=== PATIENT | female | born 1935 | race Caucasian/White ===

== ENCOUNTER 2017-06-25 15:39 | Inpatient (IN) | payer OTHER ==
[~2017-06-25] VITALS: Ht 162.6 cm; Wt 57.7 kg
--- NOTE | ~2017-06-25 | HC ---
[facility] [place] [address] CONSULTATION Name: SARI VILLASEÑOR Room #: 215-P [facility] IN M.R.#: [id number] Admission: 06/25/17 Attend Phys: Ness Kim MD Discharge: 06/29/17 Date of : 39 Report #: [id number] THIS REPORT FOR: //name// CC: Ness Kim DATE OF SERVICE: 06/29/2017 HISTORY OF PRESENT ILLNESS: The patient is a 81-year-old white female admitted with increased shortness of breath and lowered herself to the floor. She does have a premorbid history of bronchogenic carcinoma, for which she has indicated that she does not want pulmonary or oncology input. She was diagnosed with a COPD exacerbation and pneumonia. She was placed on IV Solu-Medrol, treated with antibiotics. She has intermittent atrial fibrillation continues to be in sinus rhythm. We are seeing her in rehabilitation medicine consultation. 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 She has had lung cancer diagnosed previously. History of atrial fibrillation, intermittent. History of recurrent pneumonias. MEDICATIONS: Please see the above noted medications. ALLERGIES: No known drug allergies. SOCIAL HISTORY: She lives with her grandson in a house, she used a walker for short distances was on O2 of 3 liters. The grandson's girlfriend is there and it sounds like there are couple of young children there. There also was a granddaughter that helps out. Typically, the grandson will get close set up for the patient. HABITS: She continues to smoke 1 pack per day, has been smoking for 55 years. Denies alcohol use or drug use. REVIEW OF SYSTEMS: No current complaints of chest pain or abdominal discomfort. Denies discomfort arms and legs. No complaints of headache or nausea were voiced. ALLERGIES: No known drug allergies. PHYSICAL EXAMINATION: GENERAL: A 81-year-old white female in no obvious distress. VITAL SIGNS: Last recorded temperature is 97.6, pulse 85, respirations 18, blood pressure 128/67. The patient is alert, pleasant. HEENT: Appeared to be benign. NEUROLOGIC: Cranial nerves are grossly intact. Facies are symmetric. She is on 3 liters of nasal cannula. She has functional range of motion of both upper [facility] [address] [place] [address] CONSULTATION Name: SARI VILLASEÑOR Room #: 215-P [facility] IN ..#: [id number] Admission: 06/25/17 Attend Phys: Ness Kim MD Discharge: 06/29/17 Date of : 37 Report #: [id number] extremities. Strength is grade 3+/5. DTRs are trace to 1. Lower extremities, no focal calf swelling, trace distal lower extremity edema. Tone is intact. Strength is grade 3+/5. She is mod assist with sit to stand. Gait is mod assist 60 feet on the nasal prong O2. She is min assist for bed mobility, bathing was max assist, lower body dressing was dependent. ASSESSMENT: A 81-year-old white female with the following problem list: 1. Pulmonary rehabilitation. 2. Medical complexity with generalized debilitation. 3. Healthcare-associated pneumonia. 4. Chronic obstructive pulmonary disease exacerbation. 5. Bronchogenic carcinoma does not want pulmonary or oncology input. 6. Intermittent atrial fibrillation. 7. Tobacco abuse. PLAN: Will be assessing her tolerance for an acute in-hospital inpatient rehabilitation stay. We will be glad to follow along with you. The patient does indicate she is motivated and wants to return back home with her family. <ELECTRONICALLY SIGNED> By: Amadou Sadler MD 07/08/17 1643 1012 1237 Amadou Sadler MD /PMT
--- NOTE | ~2017-06-25 | H ---
[facility] [place] [address] HISTORY AND PHYSICAL Name: SARI VILLASEÑOR Room #: 215-P ADM IN M.R.#: [id number] Admission: 06/25/17 Attend Phys: Ness Kim MD Discharge: Date of : 37 Report #: [id number] THIS REPORT FOR: //name// CC: Ness Kim DATE OF SERVICE: 06/25/2017 HISTORY OF PRESENT ILLNESS: The patient is a 81-year-old female who was admitted to the hospital with increasing shortness of breath and a fall that was not complete. The patient indicated that she was trying to collect her dirty clothing in a plan for cleaning them, and she felt very weak, so she lowered herself to the floor so she will not hurt herself. She was unable to get up because of generalized weakness. For this reason, she was brought to the Emergency Room to be evaluated. PAST MEDICAL HISTORY: Significant for chronic obstructive pulmonary disease that is very advanced. The patient had lung cancer that was diagnosed in 02/2017. The patient had a history of atrial fibrillation that was intermittent, in addition to recurrent pneumonias. Unfortunately, the patient was seen by me in the hospital, mainly at [facility], and she was able to follow up with me once only in the clinic. She was supposed to follow up with Pulmonary and Oncology from [facility], but she has not been doing any of this, and in her way saying that she does not have a way of transportation. The patient was at skilled care facility at one point, but she said she does not like it. She is aware of her cancer, and she is aware that she is not doing any intervention for that. MEDICATIONS: The patient's medications before coming to the hospital were supposed to be Eliquis, Advair, Combivent and DuoNeb in addition to Cartia, but apparently, the patient was using only bronchodilators. ALLERGIES: No known drug allergies. SOCIAL HISTORY: The patient continues to smoke about 1 pack a day and has been smoking for 55 years. The patient denies any alcohol use or drug use. REVIEW OF SYSTEMS: The patient denies any headache, blurred vision, runny nose, sore throat, cough, chest pain, shortness of breath or palpitation. She denies any nausea or vomiting. She denies any pain in the arms or legs. PHYSICAL EXAMINATION: VITAL SIGNS: Showed a temperature of 98.1 and last temperature was 99.1, pulse 108, respirations 15, blood pressure 120/94. HEAD AND NECK: Unremarkable. NECK: Supple. LUNGS: Clear to auscultation with very poor respiratory effort. [address] [address] HISTORY AND PHYSICAL Name: SARI VILLASEÑOR Room #: 215-P ADM IN M.R.#: [id number] Admission: 06/25/17 Attend Phys: Ness Kim MD Discharge: Date of : 37 Report #: [id number] CARDIOVASCULAR: S1, S2 without any murmur or gallop. ABDOMEN: Benign. Bowel sounds were positive. EXTREMITIES: Without any edema. LABORATORY DATA: A 12-lead EKG showed ventricular paced complexes, bilateral atrial enlargement, right bundle branch block, ST elevation with consideration of possible anterolateral injury. The patient's chest x-ray showed right hilar prominence concerning for right hilar mass or adenopathy. There is hazy right perihilar infiltrate or edema in addition to COPD changes. CBC showed a white count of 12.2, hemoglobin 10.7, hematocrit 33.8, platelet count 350, neutrophils are 76%, with 2% bands. The patient's sodium is 144, potassium 3.7, chloride 103, bicarbonate 35, BUN 19, creatinine 0.8, glucose 129, calcium 9.7, troponin less than 0.04. Lactic acid was 2.1. D-dimer was 3.66. CT angiogram PE protocol showed large right hilar and right middle lobe lung mass consistent with bronchogenic carcinoma. The mass invades the right pulmonary vein and occludes the right middle lobe pulmonary artery and bronchus in addition to the presence of COPD and small pericardial effusion. Repeated lactic acid from today is 1.9. CBC from today showed a white count of 13.2, hemoglobin 9.4, hematocrit 29.8, platelet count 299. Sodium 144, potassium 3.9, chloride 106, bicarbonate 33, BUN 5, creatinine 0.6. ASSESSMENT AND PLAN: 1. Generalized weakness. 2. Chronic obstructive pulmonary disease with the possibility of chronic obstructive pulmonary disease exacerbation and pneumonia. 3. Bronchogenic carcinoma. 4. Intermittent atrial fibrillation. 5. Generalized debility. 6. Noncompliance. The patient was admitted to the hospital with the above-mentioned diagnoses. The patient will be continued on azithromycin and Rocephin in addition to gentle IV hydration. I will continue the Cardizem. I will start the patient on Lovenox for DVT prophylaxis. I counseled the patient extensively about her lung cancer. I do not think that the patient will do any type of workup or any type of chemotherapy, and even I feel that the patient's prognosis is very poor. Very likely, I will have the patient follow up with her oncologist after leaving the hospital. <ELECTRONICALLY SIGNED> By: Ness Kim MD 06/27/17 0723 0942 1107 MD denise Black
--- NOTE | ~2017-06-25 | EKG ---
[place] [address] [facility] [place] [address] ELECTROCARDIOGRAM REPORT Name: SARI VILLASEÑOR Room #: 215- ADM IN M.R.#: [id number] Admission: 06/25/17 Attend Phys: Ness Kim MD Discharge: Date of : 37 Report #: [id number] THIS REPORT FOR: //name// [facility] ED Test Date: 2017-06-25 Test Time: 15:44:25 Pat Name: SARI VILLASEÑOR Department: Room: [facility] Gender: F Filenet P8 Developer: MZOOK : 1935 Requested By: Kesha Clifton Order Number: [id number] MD: Howie Blanc Measurements Intervals [place] Rate: 121 P: 73 [place]: 157 QRS: 56 QRSD: 115 T: 16 QT: 334 QTc: 474 Interpretive Statements Sinus tachycardia Incomplete right bundle branch block Right atrial abnormality No previous ECG available for comparison Electronically Signed On 06-26-2017 15:52:06 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 06/26/17 1552 1544 1544 Howie Blanc MD, FACC /EPI
[2017-06-25 15:40] VITALS: BP 120/94
[2017-06-25 16:18] LABS: HEMATOCRIT 33.8 % (37.0-47.0); HEMOGLOBIN 10.7 gm/dL (12.0-15.0); MCH 27.8 pg (26.0-34.0); MCHC 31.6 g/dL (28.0-37.0); PLATELET COUNT 350 thou/uL (150-400); RBC 3.84 mil/uL (4.20-5.00); RDW 16.3 % (10.5-14.5); WBC 12.2 thou/uL (4.0-11.0)
[2017-06-25] MEDS ORDERED: ASPIRIN325 PO (16:30)
[2017-06-25] MEDS ORDERED: MUCINEX D TABL1 EAC1 PO (16:31)
[2017-06-25 16:32] LABS: ANION GAP 6 mmol/L (7-16); BUN 19 mg/dL (7-18); CALCIUM 9.7 mg/dL (8.5-10.1); CHLORIDE 103 mmol/L (98-107); CO2 35 mmol/L (21-32); CREATININE 0.8 mg/dL (0.6-1.0); GLUCOSE 129 mg/dL (74-106); POTASSIUM 3.7 mmol/L (3.5-5.1); SODIUM 144 mmol/L (136-145)
[2017-06-25 16:37] LABS: ABSOLUTE NEUTROPHILS 9.5 thou/uL (1.4-8.2)
[2017-06-25 16:40] LABS: TROPONIN-I < 0.04 ng/mL (<0.06)
[2017-06-25 17:04] VITALS: BP 90/52
[2017-06-25 18:53] VITALS: BP 104/62
[2017-06-25 19:22] VITALS: BP 116/72
[2017-06-25 23:15] VITALS: BP 133/67
[2017-06-26 03:27] VITALS: BP 128/62
[2017-06-26 04:11] LABS: HEMATOCRIT 29.8 % (37.0-47.0); HEMOGLOBIN 9.4 gm/dL (12.0-15.0); MCH 27.9 pg (26.0-34.0); MCHC 31.5 g/dL (28.0-37.0); MCV 88.6 fL (80.0-100.0); RBC 3.36 mil/uL (4.20-5.00); RDW 16.6 % (10.5-14.5); WBC 13.2 thou/uL (4.0-11.0)
[2017-06-26 04:30] LABS: CALCIUM 9.2 mg/dL (8.5-10.1); CREATININE 0.6 mg/dL (0.6-1.0); POTASSIUM 3.9 mmol/L (3.5-5.1)
[2017-06-26 07:20] VITALS: BP 120/60
[2017-06-26 11:41] VITALS: BP 109/56
[2017-06-26 15:37] VITALS: BP 104/58
[2017-06-26 19:50] VITALS: BP 106/59
[2017-06-27 04:09] VITALS: BP 106/51
[2017-06-27 04:22] LABS: HEMATOCRIT 25.9 % (37.0-47.0); HEMOGLOBIN 8.4 gm/dL (12.0-15.0); MCH 28.4 pg (26.0-34.0); MCHC 32.3 g/dL (28.0-37.0); PLATELET COUNT 232 thou/uL (150-400); RBC 2.95 mil/uL (4.20-5.00); RDW 16.6 % (10.5-14.5)
[2017-06-27 04:32] LABS: CALCIUM 8.8 mg/dL (8.5-10.1); CREATININE 0.5 mg/dL (0.6-1.0)
[2017-06-27 05:46] LABS: ABSOLUTE NEUTROPHILS 12.7 thou/uL (1.4-8.2); ANISOCYTOSIS 1+
[2017-06-27 07:35] VITALS: BP 100/56
[2017-06-27 11:25] VITALS: BP 116/67
[2017-06-27 16:00] VITALS: BP 111/49
[2017-06-27 20:40] VITALS: BP 131/56
[2017-06-28 03:31] VITALS: BP 132/68
[2017-06-28 03:40] LABS: HEMATOCRIT 23.7 % (37.0-47.0); HEMOGLOBIN 7.4 gm/dL (12.0-15.0); MCHC 31.4 g/dL (28.0-37.0); MCV 89.1 fL (80.0-100.0); PLATELET COUNT 261 thou/uL (150-400); RBC 2.66 mil/uL (4.20-5.00); RDW 16.6 % (10.5-14.5); WBC 19.1 thou/uL (4.0-11.0)
[2017-06-28 03:52] LABS: CALCIUM 8.9 mg/dL (8.5-10.1); CREATININE 0.7 mg/dL (0.6-1.0); POTASSIUM 3.9 mmol/L (3.5-5.1)
[2017-06-28 05:24] LABS: ABSOLUTE NEUTROPHILS 18.1 thou/uL (1.4-8.2); ANISOCYTOSIS SLIGHT
[2017-06-28 08:02] VITALS: BP 111/63
[2017-06-28 11:15] VITALS: BP 126/50
[2017-06-28 15:20] VITALS: BP 127/71
[2017-06-28 19:21] VITALS: BP 164/53
[2017-06-29 03:55] VITALS: BP 141/61
[2017-06-29 04:14] LABS: HEMATOCRIT 26.5 % (37.0-47.0); HEMOGLOBIN 8.3 gm/dL (12.0-15.0); MCH 27.7 pg (26.0-34.0); MCHC 31.4 g/dL (28.0-37.0); MCV 88.2 fL (80.0-100.0); PLATELET COUNT 309 thou/uL (150-400); RDW 16.6 % (10.5-14.5)
[2017-06-29 04:29] LABS: CREATININE 0.8 mg/dL (0.6-1.0); POTASSIUM 3.8 mmol/L (3.5-5.1)
[2017-06-29 05:50] LABS: ABSOLUTE NEUTROPHILS 20.5 thou/uL (1.4-8.2); ANISOCYTOSIS 1+
[2017-06-29 06:05] LABS: LARGE PLATELETS OCCASIONAL
[2017-06-29] MEDS ORDERED: ENOXAPARIN40 MG/0.1 SUBQ (07:55)
[2017-06-29] MEDS ORDERED: DUONEB 2.5-0.5 M3 ML INH (07:55)
[2017-06-29] MEDS ORDERED: PREDNISONE 20 M20 M1 PO (07:55)
[2017-06-29] MEDS ORDERED: CARDIZEM30 MG PO (07:55)
[2017-06-29] MEDS ORDERED: CEFUROXIME250 MG PO (07:55)
[2017-06-29 08:14] VITALS: BP 128/67
[2017-06-29 15:51] VITALS: BP 124/66
== END 2017-06-29 16:34 | DRG 871 ==
LOC: ER 15:39 → 2N 17:03 → EROBS 17:03 → 2N 18:54 → ENTRNSPT 06-29 16:25 → DELTRNSPT 06-29 16:27 → ENTRNSPT 06-29 16:30 → 2N 06-29 16:34
PROVIDERS: Emergency Medicine; Internal Medicine
DX: A41.9 Sepsis, unspecified organism (principal); J18.9 Pneumonia, unspecified organism; J44.0 Chronic obstructive pulmonary disease with (acute) lower respiratory infection; C34.90 Malignant neoplasm of unspecified part of unspecified bronchus or lung; J44.1 Chronic obstructive pulmonary disease with (acute) exacerbation; Z66 Do not resuscitate; I48.91 Unspecified atrial fibrillation; F17.210 Nicotine dependence, cigarettes, uncomplicated; Z23 Encounter for immunization; Z79.82 Long term (current) use of aspirin; Z91.14 Patient's other noncompliance with medication regimen; Z79.899 Other long term (current) drug therapy; Z88.2 Allergy status to sulfonamides; Z88.0 Allergy status to penicillin
CPT/HCPCS: 10081

== ENCOUNTER 2017-06-29 12:58 | Inpatient (IN) | payer OTHER ==
[~2017-06-29] VITALS: Ht 162.6 cm; Wt 59.9 kg
--- NOTE | ~2017-06-29 | D ---
[facility] [place] [address] DISCHARGE SUMMARY Name: SARI VILLASEÑOR Room #: 510-P [facility] IN M.R.#: [id number] Admission: 06/29/17 Attend Phys: Amadou Sadler MD Discharge: 07/03/17 Date of : 37 Report #: [id number] THIS REPORT FOR: //name// CC: Ness Sadler DATE OF SERVICE: 07/03/2017 HISTORY OF PRESENT ILLNESS: This is a 81-year-old white female patient admitted to [facility] with increased shortness of breath. She has a premorbid history of bronchogenic carcinoma for which she had indicated she did not want Pulmonary or Oncology involvement. She was diagnosed with a COPD exacerbation with pneumonia. She was placed on IV Solu-Medrol and antibiotics was followed regarding her intermittent atrial fibrillation and continued to be in sinus rhythm. She was noted to be debilitated and was admitted for acute in-hospital inpatient rehabilitation to improve her strength endurance and mobility and ADLs. She returned back to the home setting. She was progressing in therapies with ambulation 50 feet with a front-wheeled walker with min assist. She was ready to be modified independent for basic bed to commode transfers. Lower body dressing was noted to be min assist. Unfortunately, on 07/03/2017, she was found to have a heart rate of 166. She was transferred to the CCU for cardiac monitoring and to rule out an DC. DISCHARGE DIAGNOSES: 1. Pulmonary rehabilitation. 2. Medical complexity with generalized debilitation. 3. Tachycardia, being admitted to CCU for cardiac rule out as noted above. 4. Healthcare-associated pneumonia. 5. Chronic obstructive pulmonary disease exacerbation. 6. Bronchogenic carcinoma for which she has not been aggressively treated. 7. History of intermittent atrial fibrillation. 8. Tobacco abuse. We will defer discharge activity, medications, etc. to the accepting service. <ELECTRONICALLY SIGNED> By: Amadou Sadler MD 07/08/17 1647 1038 1054 Amadou Sadler MD /[facility]
--- NOTE | ~2017-06-29 | H ---
[facility] [place] [address] HISTORY AND PHYSICAL Name: SARI VILLASEÑOR Room #: 510-P [facility] IN M.R.#: [id number] Admission: 06/29/17 Attend Phys: Amadou Sadler MD Discharge: 07/03/17 Date of : 37 Report #: [id number] THIS REPORT FOR: //name// CC: Ness Sadler DATE OF SERVICE: 06/29/2017 HISTORY OF PRESENT ILLNESS: This is 81-year-old white female originally admitted to [facility] with increased shortness of breath. She has lowered herself to the floor. She has a premorbid history of bronchogenic carcinoma for which she has indicated she did not want Pulmonary or Oncology input. She was diagnosed with a COPD exacerbation with pneumonia. She was placed on IV Solu-Medrol. She was treated with antibiotics. She does have intermittent atrial fibrillation and continues to be in sinus rhythm. She was noted to be debilitated and need pulmonary rehabilitation and was motivated to improve in her strength and endurance to eventually get back home. She has been admitted for an acute in-hospital inpatient rehabilitation stay. 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 She has had lung cancer diagnosed back in 02/2017. History of atrial fibrillation, intermittent. History of recurrent pneumonias. MEDICATIONS: Please see the above medication listing. Each of these was individually reconciled and includes vitamins herbals and supplements. ALLERGIES: No known drug allergies. SOCIAL HISTORY: She lives with her grandson in a house. She used a walker for short distances and was on O2 3 liters. The grandson's girlfriend is there and it sounds like they have a couple of young children there. There also was a granddaughter that helps out. Typically, the grandson will get the patient's clothes setup for her. HABITS: She has been continuing to smoke 1 pack per day and smoking for 55 years. Denied alcohol or drug usage. REVIEW OF SYSTEMS: No current complaints of chest pain or abdominal discomfort. No pain complaints involving her upper or lower extremities. ALLERGIES: No known drug allergies. PHYSICAL EXAMINATION: GENERAL: A 81-year-old white female in no obvious distress. VITAL SIGNS: Last recorded temperature 98.1, pulse 93, respirations 20, blood pressure 137/70. The patient is alert. [address] [address] HISTORY AND PHYSICAL Name: SARI VILLASEÑOR Room #: [facility] IN M.R.#: [id number] Admission: 06/29/17 Attend Phys: Amadou Sadler MD Discharge: 07/03/17 Date of : 37 Report #: [id number] HEENT: Appeared to be benign. She is a reasonable historian. Nasal O2 is in place. HEENT: Appeared to be benign. CHEST: She has some decreased breath sounds over her right lung. Some decreased breath movement overall. Tends to get short of breath with limited activity. CARDIOVASCULAR: Sounded regular rate and rhythm. ABDOMEN: Bowel sounds positive, nontender. GENITOURINARY AND RECTAL: Deferred. EXTREMITIES: She has functional range of motion of the upper and lower extremities. Tone appeared to be intact. No focal calf swelling. Strength is grade 4-/5. DTRs are trace to 1. She has been transferring with Min Assist, ambulating a short distance 12 feet Mod Assist. ASSESSMENT: A 81-year-old white female with the following problem list: 1. Pulmonary rehabilitation. 2. Medical complexity with generalized debilitation. 3. Healthcare-associated pneumonia. 4. Chronic obstructive pulmonary disease exacerbation. 5. Bronchogenic carcinoma, but does not want pulmonary or Oncology input. 6. Intermittent atrial fibrillation. 7. Tobacco abuse. PLAN: From a post-admission physician evaluation perspective, there are no relevant changes since the preadmission screening. Please see the above review of prior and current medical and functional conditions and comorbidities. Please see the patient's previous and current functional status. As far as risk of complications, the patient has the multiple medical comorbidities as noted above. Initial plan of care involves the interdisciplinary acute inpatient rehabilitation program with goal of maximizing the patient's functional independence, so that she can hopefully return back to her prior living situation. Measurable functional goals would be for her to improve with her transfers and mobility issues so that she can return back to the home setting. Prognosis is reasonably good from a rehabilitation perspective with estimated length of stay hopefully fairly short 7-10 days, pending progress. Potential barriers would include her multiple medical comorbidities and decreased functional status. The patient meets diagnostic criteria for an acute in-hospital inpatient rehabilitation stay. She meets medical necessity criteria and has the multiple medical comorbidities as noted above. She does have the tolerance for an acute [address] [address] HISTORY AND PHYSICAL Name: SARI VILLASEÑOR Room #: 510-P [facility] IN M.R.#: [id number] Admission: 06/29/17 Attend Phys: Amadou Sadler MD Discharge: 07/03/17 Date of : 37 Report #: [id number] rehab therapy program and has appropriate discharge goals back to the home setting. <ELECTRONICALLY SIGNED> By: Amadou Sadler MD 07/08/17 1643 0934 1102 Amadou Sadler MD /PMT
--- NOTE | ~2017-06-29 | EKG ---
[address] [address] ELECTROCARDIOGRAM REPORT Name: SARI VILLASEÑOR Room #: 510- ADM IN M.R.#: [id number] Admission: 06/29/17 Attend Phys: Amadou Sadler MD Discharge: Date of : 37 Report #: [id number] THIS REPORT FOR: //name// [facility] Test Date: 2017-07-03 Test Time: 06:56:50 Pat Name: SARI VILLASEÑOR Department: Room: 510 Gender: F Staff Services Manager: SUMAYA : 1935 Requested By: Ness Kim Order Number: [id number] MD: Measurements Intervals [place] Rate: 166 P: 87 MD: 56 QRS: 36 QRSD: 146 T: -59 QT: 340 QTc: 566 Interpretive Statements Extreme tachycardia with wide complex, no further rhythm analysis attempted Compared to ECG 06/25/2017 15:44:25 Sinus tachycardia no longer present Incomplete right bundle-branch block no longer present Atrial abnormality no longer present [email or web address] By: [id number] [id number] Epiphany Epiphany, /EPI
--- NOTE | ~2017-06-29 | PLAN ---
[facility] [place] [address] REHAB UNIT PLAN OF CARE Name: SARI VILLASEÑOR Room #: 510-P [facility] IN M.R.#: [id number] Admission: 06/29/17 Attend Phys: Amadou Sadler MD Discharge: 07/03/17 Date of : 37 Report #: [id number] THIS REPORT FOR: //name// CC: Ness Sadler DATE OF SERVICE: 07/02/2017 PROGRESS NOTE/OVERALL PLAN OF CARE SUBJECTIVE: The patient was seen back today in followup. OBJECTIVE: VITAL SIGNS: She is in no distress. Last recorded temperature is 36.7, pulse 82, respirations 18, blood pressure 135/71. The patient is alert. She is pleasant. HEENT: Appeared to be benign. Facies are symmetric. No focal calf swelling. She is doing well with her transfers. Basic bed to commode and I discussed with physical therapy who felt that she was ready to become modified independent with basic bed to commode transfers. She is ambulating 50 feet with a front-wheeled walker with min assist. In occupational therapy, lower body dressing is min assist. ASSESSMENT: 1. Pulmonary rehabilitation. 2. Medical complexity with generalized debilitation. 3. Healthcare-associated pneumonia. 4. Chronic obstructive pulmonary disease exacerbation. 5. Bronchogenic carcinoma. She is not being aggressively treated. 6. Intermittent atrial fibrillation. 7. Tobacco abuse. PLAN: The overall plan of care is based on the preadmission screen, post-admission physician evaluation and information garnered from therapy assessments. 1. Estimated length of stay is probably around 7-10 days. 2. Medical prognosis is reasonably good. 3. Anticipated interventions includes the interdisciplinary acute inpatient rehabilitation program with the goal of maximizing the patient's functional independence, so that she can hopefully return back to her prior living situation. 4. Anticipated functional outcomes would be for the patient to become modified independent with transfers, mobility and ADLs, so that she can return back home. 5. Discharge destination would be back where she lives with her grandson in a house. 6. Expected therapy by discipline includes PT and OT 1-1/2 hours per day each [address] [address] REHAB UNIT PLAN OF CARE Name: SARI VILLASEÑOR Room #: 510-P [facility] IN .R.#: [id number] Admission: 06/29/17 Attend Phys: Amadou Sadler MD Discharge: 07/03/17 Date of : 37 Report #: [id number] five days a week throughout the duration of the acute inpatient rehabilitation stay. <ELECTRONICALLY SIGNED> By: Amadou Sadler MD 07/08/17 1643 0919 1413 Amadou Sadler MD /[facility]
[~2017-06-29 12:58] MED LIST: ASPIRIN325 PO; CARDIZEM30 MG PO; CEFUROXIME250 MG PO; DUONEB 2.5-0.5 M3 ML INH; ENOXAPARIN40 MG/0.1 SUBQ; MUCINEX D TABL1 EAC1 PO; PREDNISONE 20 M20 M1 PO
[2017-06-29 20:05] VITALS: BP 137/70
[2017-06-30 04:08] LABS: HEMATOCRIT 25.2 % (37.0-47.0); MCH 27.7 pg (26.0-34.0); MCHC 31.8 g/dL (28.0-37.0); RBC 2.89 mil/uL (4.20-5.00); RDW 16.3 % (10.5-14.5); WBC 13.9 thou/uL (4.0-11.0)
[2017-06-30 04:12] LABS: CALCIUM 8.6 mg/dL (8.5-10.1); CREATININE 0.8 mg/dL (0.6-1.0); POTASSIUM 3.9 mmol/L (3.5-5.1)
[2017-06-30 08:16] VITALS: BP 136/80
[2017-06-30 20:02] VITALS: BP 142/62
[2017-07-01 07:20] VITALS: BP 138/74
[2017-07-01 19:18] VITALS: BP 133/60
[2017-07-02 05:16] VITALS: BP 135/71
[2017-07-02 08:00] VITALS: BP 130/70
[2017-07-02 08:39] LABS: CALCIUM 9.1 mg/dL (8.5-10.1); CREATININE 0.7 mg/dL (0.6-1.0)
[2017-07-02 19:58] VITALS: BP 120/61
== END 2017-07-03 07:02 | disposition home or self-care (01) | DRG 947 ==
PROVIDERS: Nurse Practitioner Adult Health; Physical Medicine & Rehabilitation
DX: R53.81 Other malaise (principal); J18.9 Pneumonia, unspecified organism; J44.0 Chronic obstructive pulmonary disease with (acute) lower respiratory infection; J44.1 Chronic obstructive pulmonary disease with (acute) exacerbation; J90 Pleural effusion, not elsewhere classified; F17.210 Nicotine dependence, cigarettes, uncomplicated; I48.0 Paroxysmal atrial fibrillation; Z85.118 Personal history of other malignant neoplasm of bronchus and lung; Z88.0 Allergy status to penicillin; Z88.2 Allergy status to sulfonamides; Z23 Encounter for immunization
CPT/HCPCS: 10112

== ENCOUNTER 2017-07-03 07:14 | Inpatient (IN) | payer OTHER ==
[~2017-07-03] VITALS: Ht 162.6 cm; Wt 59.1 kg
--- NOTE | ~2017-07-03 | H ---
[facility] [place] [address] HISTORY AND PHYSICAL Name: SARI VILLASEÑOR Room #: 213-P ADM IN M.R.#: [id number] Admission: 07/03/17 Attend Phys: Ness Kim MD Discharge: Date of : 37 Report #: [id number] THIS REPORT FOR: //name// CC: Ness Kim DATE OF SERVICE: 07/03/2017 HISTORY OF PRESENT ILLNESS: The patient is a 81-year-old female who is very well known to us and actually, she was admitted to the hospital with COPD exacerbation and community-acquired pneumonia. She was transferred to the inpatient rehab for further rehabilitation. Today morning, she was evaluated by the respiratory therapist and she was found to have a heart rate of 166. For this reason, we ask for the patient to be transferred to the CCU for cardiac monitoring and ruling out myocardial infarction. The patient indicated that she did not have any chest pain or any chest tightness. She did not have any increasing shortness of breath out of her baseline. The patient did not have any feeling of palpitation. PAST MEDICAL HISTORY: Significant for end-stage chronic obstructive pulmonary disease. The patient had a history of intermittent atrial fibrillation and at one time she was on Eliquis, but she stopped the medicine and she stopped actually all her medications. The patient has a history of recurrent pneumonia. The patient had a recent diagnosis of bronchiogenic adenocarcinoma, but the patient is not looking for doing any type of intervention for that. MEDICATIONS: Reviewed. ALLERGIES: No known drug allergies. SOCIAL HISTORY: The patient continues to smoke about 1 pack of cigarettes a day and smoked for about 55 years. The patient denies any alcohol use or drug use. REVIEW OF SYSTEMS: Negative besides what was mentioned above. PHYSICAL EXAMINATION: VITAL SIGNS: Showed a temperature of 97.4, pulse 165, respiration 18, blood pressure 100/65. HEAD AND NECK: Unremarkable. NECK: Supple. LUNGS: Clear to auscultation. CARDIAC: S1, S2. ABDOMEN: Benign. Bowel sounds were positive. EXTREMITIES: Without any edema. DIAGNOSTIC DATA: A 12-lead EKG showed extreme tachycardia with wide-complex, no further rhythm analysis attempted. Rest of labs are still pending. [facility] [address] [place] [address] HISTORY AND PHYSICAL Name: SARI VILLASEÑOR Room #: [address] [place] [address] [place] [facility].#: [id number] Admission: 07/03/17 Attend Phys: Ness Kim MD Discharge: Date of : 37 Report #: [id number] ASSESSMENT AND PLAN: 1. Wide-complex tachycardia that has resolved. 2. Chronic obstructive pulmonary disease. 3. Adenocarcinoma of the lung. PLAN: The patient was transferred to the ICU. I will increase the patient's Cardizem to 60 mg 3 times a day and I will have Cardiology to consult on the patient. We will rule out myocardial infarction by serial cardiac enzymes. We will repeat chest x-ray. We will continue to monitor the patient. <ELECTRONICALLY SIGNED> By: Ness Kim MD 07/04/17 0743 0801 0825 Ness Kim MD /nt
--- NOTE | ~2017-07-03 | HC ---
[facility] [place] [address] CONSULTATION Name: SARI VILLASEÑOR Room #: 213-P ADM IN M.R.#: [id number] Admission: 07/03/17 Attend Phys: Ness Kim MD Discharge: Date of : 39 Report #: [id number] THIS REPORT FOR: //name// CC: Ness Kim DATE OF SERVICE: 07/03/2017 INDICATION: Atrial fibrillation. HISTORY OF PRESENT ILLNESS: This is a 81-year-old female who was transferred from inpatient rehabilitation for tachycardia. The patient has a history of severe chronic obstructive pulmonary disease, oxygen dependent, who was recently admitted for a chronic obstructive pulmonary disease exacerbation. This morning, she was found to be tachycardic, did report some palpitations. However, she denies any chest pains, shortness of breath or diaphoresis. On telemetry, she had a heart rate of 166 beats per minute, with atrial fibrillation/atrial flutter. She was given Cardizem IV and the rhythm converted to sinus. She has a history of paroxysmal atrial fibrillation. At one point, she was on Eliquis, but she stopped taking it due to the expense. In fact, she stopped taking most of her medications. PAST MEDICAL HISTORY: Severe chronic obstructive pulmonary disease, oxygen dependent. Recent diagnosis of bronchogenic adenocarcinoma, but the patient does not want any type of evaluation or treatment. History of gait instability with falls, chronic tobacco use. Paroxysmal atrial fibrillation. History of noncompliance. ALLERGIES: None. MEDICATIONS: Please see the MAR for full listing. SOCIAL HISTORY: Positive tobacco use, 1 pack per day. FAMILY HISTORY: Negative for premature coronary artery disease. REVIEW OF SYSTEMS: A full 10-point review of systems performed. Only the pertinent positives and negatives are described in the HPI. PHYSICAL EXAMINATION: VITAL SIGNS: Blood pressure 110/60, heart rate is 75 beats per minute. GENERAL APPEARANCE: An elderly appearing female, in no acute respiratory distress. HEAD AND EYES: Normocephalic. Sclerae are anicteric. ENT: Oral mucosa moist. NECK: Supple. LUNGS: Diminished breath sounds diffusely. [facility] [address] [place] [address] CONSULTATION Name: SARI VILLASEÑOR Room #: 213-[facility] IN ..#: [id number] Admission: 07/03/17 Attend Phys: Ness Kim MD Discharge: Date of : 39 Report #: [id number] CARDIAC: S1, S2 positive. ABDOMEN: Soft, nontender. EXTREMITIES: No major joint deformities. No cyanosis noted. Trace edema. LABORATORY DATA: Troponin is 0.06. ASSESSMENT AND PLAN: 1. Atrial fibrillation/flutter, converted to sinus rhythm with IV Cardizem. She has a prior history of paroxysmal atrial fibrillation. She also has a history of noncompliance, she stopped taking Eliquis. She is currently on Cardizem, beta blockers are prohibited given her severe chronic obstructive pulmonary disease. The plan is to add amiodarone to maintain sinus rhythm. 2. Chronic obstructive pulmonary disease, continue with oxygen. 3. Tobacco use, complete smoking cessation is recommended. 4. Hypertension, continue with Cardizem. 5. General debility, continue with physical therapy. <ELECTRONICALLY SIGNED> By: Korey Lindo MD 07/04/17 0800 [id number] Korey Lindo MD /nt
--- NOTE | ~2017-07-03 | 2DMMODE ---
[facility] [address] [place] [address] 2 D/M-MODE ECHOCARDIOGRAM Name: SARI VILLASEÑOR Room #: 213-P ADM IN M.R.#: [id number] Admission: 07/03/17 Attend Phys: Ness Kim MD Discharge: Date of : 39 Date of Service: 07/06/17 1255 Report #: [id number] THIS REPORT FOR: //name// APPROVED REPORT Study performed: 07/06/2017 09:38:30 EXAM: Comprehensive 2D, Doppler, and color-flow Echocardiogram Patient Location: Bedside Room #: 213 Status: routine BSA: 1.63 HR: 66 bpm BP: 111/40 mmHg Other Information Study Quality: Adequate Indications COPD Atrial Fibrillation 2D Dimensions RVDd: 25.52 mm LVEF(%): 74.80 (>50%) IVSd: 8.60 (7-11mm) LVOT Diam: 18.06 (18-24mm) LVDd: 35.88 mm PWd: 9.36 (7-11mm) Ascending Ao: 28.70 (22-36mm) LVDs: 20.53 (25-40mm) Aortic Root: 25.98 mm IVC: 14.00 mm Weiss's LVEF: 74.80 % Volumes Left Atrial Volume (Systole) Single Plane 4CH: 29.92 mL Single Plane 2CH: 24.18 mL LA ESV Index: 20.00 mL/m2 Aortic Valve AoV Peak Antwon.: 1.98 m/s AO Peak Gr.: 15.73 mmHg LVOT Max P.66 mmHg LVOT Max V: 1.63 m/s FARA Vmax: 2.11 cm2 Mitral Valve E/A Ratio: 0.8 MV Decel. Time: 347.[address] [facility] [place] [address] 2 D/M-MODE ECHOCARDIOGRAM Name: SARI VILLASEÑOR Room #: 213-[facility] IN M.R.#: [id number] Admission: 07/03/17 Attend Phys: Ness Kim MD Discharge: Date of : 39 Date of Service: 07/06/17 1255 Report #: [id number] MV E Max Antwon.: 1.01 m/s MV A Antwon.: 1.29 m/s MV PHT: 100.79 ms IVRT: 119.95 ms Pulmonary Valve PV Peak Antwon.: 1.13 m/s PV Peak Gr.: 5.08 mmHg Pulmonary Vein P Vein S: 0.77 m/s P Vein A: 0.27 m/s P Vein D: 0.71 m/s P Vein A Dur.: 96.9 msec P Vein S/D Ratio: 1.08 Tricuspid Valve TR Peak Antwon.: 3.16 m/s TR Peak Gr.: 40.05 mmHg PA Pressure: 45.00 mmHg Left Ventricle The left ventricle is normal size. There is normal left ventricular wall thickness. Left ventricular systolic function is hyperdynamic. LVEF is >70%. Grade I - abnormal relaxation pattern. Right Ventricle The right ventricle is normal size. The right ventricular systolic function is normal. Atria The left atrium size is normal. The right atrium size is normal. Aortic Valve The aortic valve is normal in structure. No aortic regurgitation is present. There is no aortic valvular stenosis. Mitral Valve The mitral valve is normal in structure. Trace mitral regurgitation. No evidence of mitral valve stenosis. Tricuspid Valve The tricuspid valve is normal in structure. There is trace to mild tricuspid regurgitation. Estimated PAP 45 mmHg. There is moderate pulmonary hypertension. Pulmonic Valve The pulmonary valve is normal in structure. Trace pulmonic [facility] [address] [place] [address] 2 D/M-MODE ECHOCARDIOGRAM Name: SARI VILLASEÑOR Room #: 213-P ADM IN [facility]#: [id number] Admission: 07/03/17 Attend Phys: Ness Kim MD Discharge: Date of : 39 Date of Service: 07/06/17 1255 Report #: [id number] regurgitation. Great Vessels The aortic root is normal in size. IVC is normal in size and collapses >50% with inspiration. Pericardium There is no pericardial effusion. <Conclusion> The left ventricle is normal size. Left ventricular systolic function is hyperdynamic. Grade I - abnormal relaxation pattern. The right ventricle is normal size. The left atrium size is normal. The aortic valve is normal in structure. Trace mitral regurgitation. There is trace to mild tricuspid regurgitation. Estimated PAP 45 mmHg. There is moderate pulmonary hypertension. <ELECTRONICALLY SIGNED> By: Korey Lindo MD 07/06/17 1255 1255 1255 Korey Lindo MD /INF
[2017-07-03 09:08] VITALS: BP 95/57
[2017-07-03 11:20] VITALS: BP 113/58
[2017-07-03 15:28] VITALS: BP 119/62
[2017-07-03 19:40] VITALS: BP 118/63
[2017-07-04 03:44] LABS: HEMATOCRIT 25.9 % (37.0-47.0); HEMOGLOBIN 8.2 gm/dL (12.0-15.0); MCH 27.9 pg (26.0-34.0); MCHC 31.6 g/dL (28.0-37.0); MCV 88.3 fL (80.0-100.0); RBC 2.93 mil/uL (4.20-5.00); RDW 16.7 % (10.5-14.5)
[2017-07-04 03:58] LABS: CALCIUM 8.7 mg/dL (8.5-10.1); CREATININE 0.8 mg/dL (0.6-1.0); POTASSIUM 4.7 mmol/L (3.5-5.1)
[2017-07-04 05:30] VITALS: BP 116/57
[2017-07-04 07:55] VITALS: BP 120/64
[2017-07-04 11:25] VITALS: BP 117/51
[2017-07-04 15:30] VITALS: BP 108/58
[2017-07-04 20:28] VITALS: BP 115/68
[2017-07-05 02:54] LABS: ABSOLUTE NEUTROPHILS 14.8 thou/uL (1.4-8.2); BASOPHILS 0.2 % (0.0-2.0); EOSINOPHILS 0.3 % (0.0-3.0); HEMATOCRIT 26.2 % (37.0-47.0); HEMOGLOBIN 8.3 gm/dL (12.0-15.0); LYMPHOCYTES 9.1 % (24.0-44.0); MCH 28.2 pg (26.0-34.0); MCHC 31.7 g/dL (28.0-37.0); MCV 88.8 fL (80.0-100.0); MONOCYTES 9.1 % (1.0-8.0); PLATELET COUNT 326 thou/uL (150-400); POLYS 81.3 % (36.0-66.0); RBC 2.94 mil/uL (4.20-5.00); RDW 17.2 % (10.5-14.5); WBC 18.2 thou/uL (4.0-11.0)
[2017-07-05 02:59] LABS: MANUAL DIFF NO
[2017-07-05 03:05] LABS: CALCIUM 8.4 mg/dL (8.5-10.1); CREATININE 0.8 mg/dL (0.6-1.0); POTASSIUM 3.6 mmol/L (3.5-5.1)
[2017-07-05 04:37] VITALS: BP 111/66
[2017-07-05 07:10] VITALS: BP 126/66
[2017-07-05] MEDS ORDERED: CARDIZEM30 MG PO (07:43)
[2017-07-05] MEDS ORDERED: PACERONE 200 M200 M1 PO (07:43)
[2017-07-05] MEDS ORDERED: LASIX 20 MG TAB20 MG PO (07:44)
[2017-07-05] MEDS ORDERED: COLACE 100 MG100 MG PO (07:44)
[2017-07-05] MEDS ORDERED: MUCINEX600 MG PO (07:44)
[2017-07-05 13:35] VITALS: BP 96/56
[2017-07-05 17:00] VITALS: BP 108/52
[2017-07-05 20:51] VITALS: BP 122/66
[2017-07-06 04:45] VITALS: BP 111/40
[2017-07-06 07:50] VITALS: BP 104/57
[2017-07-06 08:52] VITALS: BP 104/57
[2017-07-06 10:33] VITALS: BP 104/57
[2017-07-06 11:45] VITALS: BP 119/41
[2017-07-06 15:33] VITALS: BP 104/57
== END 2017-07-06 15:00 | DRG 309 ==
LOC: 2N 07:14
PROVIDERS: Internal Medicine; Internal Medicine Cardiovascular Disease
DX: I48.0 Paroxysmal atrial fibrillation (principal); C34.90 Malignant neoplasm of unspecified part of unspecified bronchus or lung; J44.9 Chronic obstructive pulmonary disease, unspecified; F17.210 Nicotine dependence, cigarettes, uncomplicated; I48.92 Unspecified atrial flutter; I10 Essential (primary) hypertension; R00.0 Tachycardia, unspecified; D64.9 Anemia, unspecified; Z88.0 Allergy status to penicillin; Z88.2 Allergy status to sulfonamides; Z79.899 Other long term (current) drug therapy; Z79.82 Long term (current) use of aspirin; Z91.19 Patient's noncompliance with other medical treatment and regimen
CPT/HCPCS: 10081

== ENCOUNTER 2017-07-19 12:05 | Inpatient (IN) | payer OTHER ==
[~2017-07-19] VITALS: Ht 121.9 cm; Wt 52.8 kg
--- NOTE | ~2017-07-19 | H ---
[facility] [place] [address] [place] [address] HISTORY AND PHYSICAL Name: SARI VILLASEÑOR Room #: 212-P ADM IN M.R.#: [id number] Admission: 07/19/17 Attend Phys: Ness Kim MD Discharge: Date of : 39 Report #: [id number] THIS REPORT FOR: //name// CC: Ness Kim DATE OF SERVICE: 07/19/2017 HISTORY OF PRESENT ILLNESS: The patient is a 81-year-old female who was brought to the emergency room because of weakness and almost passing out. The patient indicated that she went to the bathroom and she was doing fairly well, but when she sat on the toilet, she felt that she is very weak and she felt that she is not going be able to get up. For this reason, she pulled herself to the floor and she asked for help. The patient's family was in the house with her. For this reason, they called the ambulance to bring her to the hospital. The patient was found to be in atrial fibrillation with rapid ventricular response. For this reason, she was started on Cardizem drip, but this dropped her blood pressure and she was evaluated by zoo director who asked for the patient to start amiodarone. Unfortunately, the patient is very noncompliant and she is supposed to be on amiodarone in addition to Cardizem and she was not taking either one of those medications. The patient denies any actual shortness of breath when she had that episode, but she was short of breath in the emergency room and also she was short of breath when she came to the floor. PAST MEDICAL HISTORY: Significant for end-stage chronic obstructive pulmonary disease, history of intermittent atrial fibrillation, the patient had a history of recurrent pneumonia, bronchogenic adenocarcinoma, but the patient decided that she does not want to have any type of intervention. MEDICATIONS: Reviewed and reconciled. ALLERGIES: No known drug allergies. SOCIAL HISTORY: The patient continues to smoke about a pack of cigarettes a day. The patient denies any alcohol use or drug use. FAMILY HISTORY: Noncontributory. REVIEW OF SYSTEMS: Negative besides what was mentioned above. PHYSICAL EXAMINATION: VITAL SIGNS: On arrival to the hospital showed a temperature of 97.4, pulse 170, respirations 24, blood pressure 88/57. The patient's last vitals showed a temperature of 97.5, pulse 80, respirations 18, blood pressure 108/45. HEAD AND NECK: Unremarkable. NECK: Supple. LUNGS: Clear to auscultation with very poor respiratory effort. [address] [address] HISTORY AND PHYSICAL Name: SARI VILLASEÑOR Room #: [facility] IN M.R.#: [id number] Admission: 07/19/17 Attend Phys: Ness Kim MD Discharge: Date of : 39 Report #: [id number] CARDIAC: S1, S2, without any murmur or gallop. ABDOMEN: Benign. Bowel sounds were positive. EXTREMITIES: Without any edema. LABORATORY DATA: The patient's ABGs showed a pH of 7.39, pCO2 of 38, and pO2 of 157. The patient's chest x-ray showed slight increased in the size and density of the previously demonstrated right hilar mid lung mass. Basic metabolic panel showed a sodium of 142, potassium 4.3, chloride 104, bicarbonate 27, BUN 22, creatinine 1.1, glucose 204, calcium 9.3. The patient's troponin is less than 0.04. BNP was 1481. CBC showed a white count of 19.0, hemoglobin 10.5, hematocrit 34.1, platelet count 288, segmented cells 86% with 5% bands. The patient's 12-lead EKG from the emergency room showed atrial fibrillation with rapid ventricular response, heart rate was 177. Atrial flutter, . Lactic acid was 1.2. ASSESSMENT AND PLAN: 1. Atrial fibrillation with rapid ventricular response. 2. Leukocytosis. 3. Chronic obstructive pulmonary disease. 4. Bronchogenic adenocarcinoma. The patient was admitted to the hospital with the above-mentioned diagnoses. The patient to continue bronchodilators. The patient was started on amiodarone and she is back to sinus rhythm. The patient was cautioned extensively about the importance of being complaint with her medications, actually the patient did not follow up with us after being discharged from the hospital. I will resume the patient's medications except the Cardizem because of hypotension. The patient to repeat her blood tests today. We will continue to monitor the patient. I will have physical therapy and occupational therapy to work with the patient. <ELECTRONICALLY SIGNED> By: Ness Kim MD 07/22/17 0659 0756 0821 Ness Kim MD /nt
--- NOTE | ~2017-07-19 | EKG ---
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 Atrial flutter no longer present Electronically Signed On 07-19-2017 13:19:04 [employer]PER[employer] by Pedro Gonzales [email or web address] <ELECTRONICALLY SIGNED> By: Pedro Gonzales MD 07/19/17 1319 1228 1228 MD JIM Franco
[~2017-07-19 12:05] MED LIST changes: +COLACE 100 MG100 MG PO; +LASIX 20 MG TAB20 MG PO; +MUCINEX600 MG PO; +PACERONE 200 M200 M1 PO
[2017-07-19 12:06] VITALS: BP 88/57
[2017-07-19 12:17] LABS: BE(vivo) -1.6 mmol/L (-2 to +3); HCO3 23.1 mmol/L (22.0-26.0); PCO2 38.6 mmHg (35.0-45.0); PO2 157.6 mmHg (80.0-100.0); pH 7.394 (7.360-7.450)
[2017-07-19 12:32] LABS: HEMATOCRIT 34.1 % (37.0-47.0); HEMOGLOBIN 10.5 gm/dL (12.0-15.0); MCH 27.9 pg (26.0-34.0); MCHC 30.7 g/dL (28.0-37.0); PLATELET COUNT 288 thou/uL (150-400); RBC 3.75 mil/uL (4.20-5.00); RDW 17.9 % (10.5-14.5)
[2017-07-19 12:36] LABS: ANION GAP 11 mmol/L (7-16); BUN 22 mg/dL (7-18); CALCIUM 9.3 mg/dL (8.5-10.1); CHLORIDE 104 mmol/L (98-107); CO2 27 mmol/L (21-32); CREATININE 1.1 mg/dL (0.6-1.0); GLUCOSE 204 mg/dL (74-106); POTASSIUM 4.3 mmol/L (3.5-5.1); SODIUM 142 mmol/L (136-145)
[2017-07-19 12:44] LABS: TROPONIN-I < 0.04 ng/mL (<0.06)
[2017-07-19 13:09] LABS: ABSOLUTE NEUTROPHILS 17.3 thou/uL (1.4-8.2); ANISOCYTOSIS 1+
[2017-07-19 16:41] VITALS: BP 97/46
[2017-07-19 20:08] VITALS: BP 101/44
[2017-07-19 20:36] VITALS: BP 127/54
[2017-07-19 23:55] VITALS: BP 111/59
[2017-07-20 05:17] VITALS: BP 108/45
[2017-07-20 07:40] VITALS: BP 124/55
[2017-07-20 11:50] VITALS: BP 112/59
[2017-07-20 15:55] VITALS: BP 121/73
[2017-07-20 20:18] VITALS: BP 121/62
[2017-07-20 23:26] VITALS: BP 120/56
[2017-07-21 03:33] LABS: ABSOLUTE NEUTROPHILS 7.6 thou/uL (1.4-8.2); BASOPHILS 0.5 % (0.0-2.0); EOSINOPHILS 1.4 % (0.0-3.0); HEMATOCRIT 27.7 % (37.0-47.0); HEMOGLOBIN 9.2 gm/dL (12.0-15.0); LYMPHOCYTES 8.6 % (24.0-44.0); MCH 28.6 pg (26.0-34.0); MCHC 33.1 g/dL (28.0-37.0); MCV 86.5 fL (80.0-100.0); MONOCYTES 11.7 % (1.0-8.0); POLYS 77.8 % (36.0-66.0); RBC 3.21 mil/uL (4.20-5.00); RDW 17.4 % (10.5-14.5); WBC 9.8 thou/uL (4.0-11.0)
[2017-07-21 03:34] LABS: PLATELET COUNT 213 thou/uL (150-400)
[2017-07-21 03:48] LABS: CREATININE 0.9 mg/dL (0.6-1.0)
[2017-07-21 05:12] VITALS: BP 111/58
[2017-07-21 07:30] VITALS: BP 90/47
[2017-07-21 16:01] VITALS: BP 104/58
[2017-07-21 19:25] VITALS: BP 119/53
[2017-07-22 03:46] LABS: HEMATOCRIT 28.2 % (37.0-47.0); HEMOGLOBIN 9.1 gm/dL (12.0-15.0); MCH 28.1 pg (26.0-34.0); MCHC 32.1 g/dL (28.0-37.0); MCV 87.5 fL (80.0-100.0); RBC 3.23 mil/uL (4.20-5.00); RDW 17.4 % (10.5-14.5); WBC 9.9 thou/uL (4.0-11.0)
[2017-07-22 03:52] LABS: CREATININE 0.7 mg/dL (0.6-1.0)
[2017-07-22 06:12] VITALS: BP 86/48
[2017-07-22 09:53] VITALS: BP 116/54
[2017-07-22 11:26] VITALS: BP 115/50
[2017-07-22 15:37] VITALS: BP 131/65
[2017-07-22 20:30] VITALS: BP 110/63
[2017-07-23 04:28] LABS: HEMATOCRIT 26.9 % (37.0-47.0); HEMOGLOBIN 8.7 gm/dL (12.0-15.0); MCH 28.5 pg (26.0-34.0); MCHC 32.4 g/dL (28.0-37.0); MCV 88.1 fL (80.0-100.0); PLATELET COUNT 299 thou/uL (150-400); RBC 3.05 mil/uL (4.20-5.00); RDW 16.8 % (10.5-14.5); WBC 8.1 thou/uL (4.0-11.0)
[2017-07-23 04:30] VITALS: BP 105/55
[2017-07-23 04:39] LABS: CALCIUM 9.2 mg/dL (8.5-10.1); CREATININE 0.7 mg/dL (0.6-1.0); POTASSIUM 4.4 mmol/L (3.5-5.1)
[2017-07-23 07:40] LABS: ABSOLUTE NEUTROPHILS 5.4 thou/uL (1.4-8.2)
[2017-07-23 07:41] LABS: ANISOCYTOSIS 1+
[2017-07-23 10:23] VITALS: BP 105/55
== END 2017-07-23 14:41 | DRG 310 ==
LOC: ER 12:05 → 2N 13:03 → EROBS 13:03 → 2N 20:18
PROVIDERS: Emergency Medicine; Internal Medicine; Nurse Practitioner Adult Health
DX: I48.0 Paroxysmal atrial fibrillation (principal); I48.92 Unspecified atrial flutter; C10.4 Malignant neoplasm of branchial cleft; J44.9 Chronic obstructive pulmonary disease, unspecified; D72.829 Elevated white blood cell count, unspecified; Z88.0 Allergy status to penicillin; Z88.2 Allergy status to sulfonamides; Z79.899 Other long term (current) drug therapy; Z79.82 Long term (current) use of aspirin; Z91.14 Patient's other noncompliance with medication regimen; I50.9 Heart failure, unspecified; Z90.710 Acquired absence of both cervix and uterus; Z87.891 Personal history of nicotine dependence; Z99.81 Dependence on supplemental oxygen
CPT/HCPCS: 10194